=== PATIENT | male | born 1970 | race Caucasian/White ===

== ENCOUNTER → 2016-09-16 | Outpatient (CLI) | payer OTHER | LOC: ULTRA 17:37 | DX: M79.89 Other specified soft tissue disorders (principal) ==

== ENCOUNTER → 2016-10-04 | Outpatient (CLI) | payer OTHER | LOC: HYPER | DX: L98.412 Non-pressure chronic ulcer of buttock with fat layer exposed (principal); L02.31 Cutaneous abscess of buttock; N49.3 Fournier gangrene; E66.01 Morbid (severe) obesity due to excess calories; I10 Essential (primary) hypertension; Z87.891 Personal history of nicotine dependence; Z72.89 Other problems related to lifestyle ==

== ENCOUNTER → 2016-10-26 | Outpatient (CLI) | payer OTHER | LOC: HYPER 07:16 | DX: L98.412 Non-pressure chronic ulcer of buttock with fat layer exposed (principal); N49.3 Fournier gangrene; E66.01 Morbid (severe) obesity due to excess calories; I10 Essential (primary) hypertension; Z87.891 Personal history of nicotine dependence; Z68.38 Body mass index [BMI] 38.0-38.9, adult ==

== ENCOUNTER → 2016-11-09 | Outpatient (CLI) | payer OTHER | LOC: HYPER 07:10 | DX: L98.412 Non-pressure chronic ulcer of buttock with fat layer exposed (principal); N49.3 Fournier gangrene; I10 Essential (primary) hypertension; E66.01 Morbid (severe) obesity due to excess calories; Z68.38 Body mass index [BMI] 38.0-38.9, adult; Z87.891 Personal history of nicotine dependence; Z72.89 Other problems related to lifestyle ==